=== PATIENT | male | born 1940 | race Caucasian/White ===

== ENCOUNTER 2016-07-10 19:26 | Inpatient (IN) | payer OTHER ==
[~2016-07-10] VITALS: Ht 167.6 cm; Wt 93.4 kg
[2016-07-10 20:17] LABS: BASOPHIL % 0.2 % (0-2); PLATELET COUNT 233 x10^3mcL (130-400); RED CELL DISTRIBUTION WIDTH 14.4 % (11.5-14.5)
[2016-07-10 20:24] LABS: CALCIUM 9.1 mg/dL (8.5-10.1); CARBON DIOXIDE 27.8 mmol/L (21-32); CHLORIDE SERUM 106 mmol/L (98-107); CREATININE SERUM 1.7 mg/dL (0.7-1.3); GLUCOSE SERUM 171 mg/dL (74-106); POTASSIUM SERUM 3.8 mmol/L (3.5-5.1); SODIUM SERUM 144 mmol/L (136-145)
[2016-07-10 20:30] LABS: ALBUMIN 3.4 g/dL (3.4-5.0); ALKALINE PHOSPHATASE 106 U/L (46-116); ALT/SGPT 35 U/L (16-63); AST/SGOT 24 U/L (15-37); BILIRUBIN TOTAL 0.51 mg/dL (0.20-1.00); MAGNESIUM 1.8 mg/dL (1.8-2.4); TOTAL PROTEIN, SERUM 7.2 g/dL (6.4-8.2)
[2016-07-10] MEDS ORDERED: NEU300 PO (20:33)
[2016-07-10] MEDS ORDERED: MASON NATURAL1000 IU PO (20:42)
[2016-07-10] MEDS ORDERED: MULTIVITAMIN1 SGL PO (20:42)
[2016-07-10] MEDS ORDERED: NOR10 PO (20:43)
[2016-07-10] MEDS ORDERED: FISH OIL 1,2001 EACH PO (20:43)
[2016-07-10] MEDS ORDERED: GOOD SENSE OMEP20 MG PO (20:44)
[2016-07-10] MEDS ORDERED: POTASSIUM CHLO10 MEQ PO (20:45)
[2016-07-10] MEDS ORDERED: FUROSEMIDE20 MG PO (20:45)
[2016-07-10] MEDS ORDERED: METOPROLOL SUC100 M2 PO (20:46)
[2016-07-10] MEDS ORDERED: BACLOFEN20 MG PO (20:50)
[2016-07-10 21:57] VITALS: BP 138/61
[2016-07-10 22:42] VITALS: BP 138/61
[2016-07-10] MEDS ORDERED: COUMADIN5 MG PO (23:38)
[2016-07-11 00:17] VITALS: BP 133/61
[2016-07-11 00:44] LABS: microscopic required? NO
[2016-07-11 01:09] LABS: UA SPECIFIC GRAVITY 1.015 (1.005-1.035); urine erythrocyte NEGATIVE (NEGATIVE)
[2016-07-11 01:13] LABS: CHOLESTEROL/HDL RATIO 3.8
[2016-07-11 01:16] LABS: AMPHETAMINE QUAL UR NONE DETECTED (NEG <=1000)
[2016-07-11 01:21] LABS: T3 TOTAL 0.86 ng/mL
[2016-07-11 01:23] LABS: FREE T4 1.01 ng/dL (0.76-1.46); FREE THYROXINE INDEX 2.6 ug/dL (1.4-4.5); T4(THYROXINE) 7.7 ug/dL (4.7-13.3)
[2016-07-11 05:22] VITALS: BP 118/58
[2016-07-11 06:11] LABS: BASOPHIL % 0.2 % (0-2); PLATELET COUNT 205 x10^3mcL (130-400); RED CELL DISTRIBUTION WIDTH 14.4 % (11.5-14.5)
[2016-07-11 06:31] LABS: CALCIUM 8.9 mg/dL (8.5-10.1); CARBON DIOXIDE 30.3 mmol/L (21-32); CHLORIDE SERUM 109 mmol/L (98-107); CREATININE SERUM 1.6 mg/dL (0.7-1.3); GLUCOSE SERUM 140 mg/dL (74-106); MAGNESIUM 1.8 mg/dL (1.8-2.4); PHOSPHOROUS 3.2 mg/dL (2.5-4.9); SODIUM SERUM 146 mmol/L (136-145)
[2016-07-11 10:27] VITALS: BP 148/80
[2016-07-11 13:31] VITALS: BP 114/56
[2016-07-11 16:53] VITALS: BP 131/63
[2016-07-11 20:54] VITALS: BP 137/58
[2016-07-12 05:58] VITALS: BP 152/68
[2016-07-12 06:23] LABS: BASOPHIL % 0.4 % (0-2); PLATELET COUNT 260 x10^3mcL (130-400)
[2016-07-12 06:37] LABS: CARBON DIOXIDE 30.9 mmol/L (21-32); CHLORIDE SERUM 109 mmol/L (98-107); CREATININE SERUM 1.5 mg/dL (0.7-1.3); GLUCOSE SERUM 127 mg/dL (74-106); SODIUM SERUM 146 mmol/L (136-145)
[2016-07-12 06:50] LABS: RED CELL DISTRIBUTION WIDTH 14.9 % (11.5-14.5)
[2016-07-12 09:32] VITALS: BP 133/66
[2016-07-12 12:59] VITALS: BP 128/55
[2016-07-12 18:27] VITALS: BP 111/64
[2016-07-12 20:00] VITALS: BP 134/61
[2016-07-12 21:43] VITALS: BP 124/58
[2016-07-13 06:26] VITALS: BP 148/73
[2016-07-13 07:28] LABS: CALCIUM 9.3 mg/dL (8.5-10.1); CHLORIDE SERUM 110 mmol/L (98-107); CREATININE SERUM 1.5 mg/dL (0.7-1.3); GLUCOSE SERUM 127 mg/dL (74-106); POTASSIUM SERUM 3.9 mmol/L (3.5-5.1); SODIUM SERUM 145 mmol/L (136-145)
[2016-07-13 09:19] VITALS: BP 122/83
[2016-07-13 09:49] VITALS: BP 122/83
[2016-07-13] MEDS ORDERED: COUMADIN3 MG PO ×2 (10:04→10:05)
[2016-07-13] MEDS ORDERED: AMBIEN5 MG PO (10:09)
[2016-07-13] MEDS ORDERED: LEVAQUIN750 MG PO (11:49)
[2016-07-13] MEDS ORDERED: CLEOCIN HCL300 MG PO (11:49)
[2016-07-13] MEDS ORDERED: FLORASTOR1 CAP PO (11:50)
[2016-07-13] MEDS ORDERED: GLUCOTROL5 MG PO (11:54)
== END 2016-07-13 14:30 | disposition home or self-care (01) | DRG 177 ==
LOC: ED 19:26 → DU 21:03 → MU 07-12 14:59
PROVIDERS: Emergency Medicine; ADMIT Family Medicine
DX: J69.0 Pneumonitis due to inhalation of food and vomit (principal); G93.41 Metabolic encephalopathy; N17.0 Acute kidney failure with tubular necrosis; E87.0 Hyperosmolality and hypernatremia; E11.65 Type 2 diabetes mellitus with hyperglycemia; E11.51 Type 2 diabetes mellitus with diabetic peripheral angiopathy without gangrene; E11.40 Type 2 diabetes mellitus with diabetic neuropathy, unspecified; K21.9 Gastro-esophageal reflux disease without esophagitis; F44.4 Conversion disorder with motor symptom or deficit; M51.26 Other intervertebral disc displacement, lumbar region; G89.29 Other chronic pain; D64.9 Anemia, unspecified; I10 Essential (primary) hypertension; I25.2 Old myocardial infarction; E66.9 Obesity, unspecified; Z68.33 Body mass index [BMI] 33.0-33.9, adult; Z86.711 Personal history of pulmonary embolism; Z79.01 Long term (current) use of anticoagulants; Z95.1 Presence of aortocoronary bypass graft
CPT/HCPCS: 82962; 83880; 84439; 94150; 97110-GP; G0480; J2543; J7030; J7620; Q0092

== ENCOUNTER 2017-12-16 18:24 | Emergency (ER) | payer OTHER ==
[~2017-12-16] VITALS: Ht 170.2 cm; Wt 88.9 kg
[~2017-12-16 18:24] MED LIST: AMBIEN5 MG PO; BACLOFEN20 MG PO; CLEOCIN HCL300 MG PO; COUMADIN3 MG PO; COUMADIN5 MG PO; FISH OIL 1,2001 EACH PO; FLORASTOR1 CAP PO; FUROSEMIDE20 MG PO; GLUCOTROL5 MG PO; GOOD SENSE OMEP20 MG PO; LEVAQUIN750 MG PO; MASON NATURAL1000 IU PO; METOPROLOL SUC100 M2 PO; MULTIVITAMIN1 SGL PO; NEU300 PO; NOR10 PO; POTASSIUM CHLO10 MEQ PO
[2017-12-16 18:32] VITALS: Ht 170.2 cm; Wt 88.9 kg
[2017-12-16 20:39] VITALS: BP 160/73
== END 2017-12-16 20:39 | disposition home or self-care (01) ==
LOC: ED 18:24
DX: S01.112A Laceration without foreign body of left eyelid and periocular area, initial encounter (principal); I10 Essential (primary) hypertension; E11.9 Type 2 diabetes mellitus without complications; W18.39XA Other fall on same level, initial encounter; Y93.89 Activity, other specified; Y92.89 Other specified places as the place of occurrence of the external cause; Y99.8 Other external cause status
CPT/HCPCS: J2001

== ENCOUNTER 2017-12-24 11:45 | Emergency (ER) | payer OTHER ==
[~2017-12-24] VITALS: Ht 170.2 cm; Wt 87.1 kg
[2017-12-24 11:49] VITALS: BP 142/91; Ht 170.2 cm; Wt 87.1 kg
== END 2017-12-24 12:10 | disposition home or self-care (01) ==
LOC: ED 11:45
DX: S01.112D Laceration without foreign body of left eyelid and periocular area, subsequent encounter (principal); X58.XXXD Exposure to other specified factors, subsequent encounter; I10 Essential (primary) hypertension; E11.9 Type 2 diabetes mellitus without complications